=== PATIENT | female | born 2000 | race Caucasian/White ===

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

== ENCOUNTER 2019-06-15 17:54 | Emergency (ER) | payer OTHER ==
[~2019-06-15] VITALS: Ht 154.9 cm; Wt 55.8 kg
[2019-06-15 18:18] VITALS: Ht 154.9 cm; Wt 55.8 kg
[2019-06-15 21:45] VITALS: BP 105/54
== END 2019-06-15 21:45 | disposition home or self-care (01) ==
LOC: ED 17:54
DX: F10.10 Alcohol abuse, uncomplicated (principal); J45.909 Unspecified asthma, uncomplicated; R51 Headache
CPT/HCPCS: J7030; Q0162